=== PATIENT | male | born 1945 | race Caucasian/White ===

== ENCOUNTER → 2020-07-27 14:34 | Outpatient (BNVA) | payer MEDICARE, BC, SELFPAY | PROVIDERS: Family Provider Family Medicine; PCP Nurse Practitioner Family; Visit Provider Nurse Practitioner Family | DX: Z20.828 Contact with and (suspected) exposure to other viral communicable diseases (principal) | CPT/HCPCS: 87635 ==

== ENCOUNTER → 2021-01-26 10:51 | Outpatient (BNVA) | payer MEDICARE, BC, SELFPAY | PROVIDERS: Family Provider Family Medicine; PCP Family Medicine; Referring Provider Family Medicine; Visit Provider Specialist | DX: M25.551 Pain in right hip (principal); M25.552 Pain in left hip; M16.0 Bilateral primary osteoarthritis of hip | CPT/HCPCS: 73521 ==

== ENCOUNTER 2021-02-02 06:00 | Outpatient (RCR) | payer MEDICARE, BC, SELFPAY | END 2021-02-02 23:59 | disposition home or self-care (01) | LOC: APT 06:00 | PROVIDERS: Family Provider Family Medicine; PCP Family Medicine; Referring Provider Specialist; Visit Provider Specialist | DX: M16.11 Unilateral primary osteoarthritis, right hip (principal) | CPT/HCPCS: 97110; 97161 ==

== ENCOUNTER 2021-02-03 06:00 | Outpatient (RCR) | payer MEDICARE, BC, SELFPAY | END 2021-03-04 23:59 | disposition home or self-care (01) | LOC: APT 06:00 | PROVIDERS: PCP Family Medicine; Referring Provider Specialist; Visit Provider Specialist | DX: Z96.643 Presence of artificial hip joint, bilateral (principal) | CPT/HCPCS: 97110 ==

== ENCOUNTER → 2022-04-20 13:49 | Outpatient (BNVA) | payer MEDICARE, BC, SELFPAY | PROVIDERS: PCP Family Medicine; Visit Provider Specialist | DX: M70.62 Trochanteric bursitis, left hip (principal) | CPT/HCPCS: 20610; 99213; J1100; J2795; J3301 ==

== ENCOUNTER → 2022-07-27 11:16 | Outpatient (BNVA) | payer MEDICARE, BC, SELFPAY | PROVIDERS: PCP Family Medicine; Visit Provider Specialist | DX: M54.9 Dorsalgia, unspecified (principal); M51.37 Other intervertebral disc degeneration, lumbosacral region; M48.062 Spinal stenosis, lumbar region with neurogenic claudication | CPT/HCPCS: 72110; 99203 ==

== ENCOUNTER 2022-10-06 14:38 | Outpatient (CLI) | payer MEDICARE, BC, SELFPAY ==
--- NOTE | 2022-10-06 15:15 | MR_ITS ---
WS: [id number] MRI LUMBAR SPINE NONCONTRAST HISTORY: M48.062 - Spinal stenosis, lumbar region with neurogenic ... COMPARISON: None available. TECHNIQUE: Sagittal and axial multisequence imaging is submitted. Straightening of the normal cervical lordosis. Mild LEFT curvature lumbar spine. Disc spaces are narrowed and desiccated throughout. Osteophytic ridging and facet arthritis at multip le levels. There is a small amount of marrow edema in the L1 and L2 vertebral bodies. Conus terminates normally at L1-2 disc level. L1-L2: Diffuse osteophytic ridging and annular disc bulging. Ligamentum flavum and facet arthritis. M ild central and bilateral subarticular recess and foraminal stenosis. L2-L3: Diffuse osteophytic ridging, annular disc bulging, severe ligamentum flavum and facet arthriti s. Deformity of the thecal sac resulting in moderate central, bilateral subarticular recess and mild foraminal stenosis. Mild encroachment upon the traversing L3 nerve roots. L3-L4: Diffuse osteophytic ridging and annular disc bulging. Mild bilateral foraminal, central and muller barticular stenosis. L4-L5: Diffuse annular disc bulging and marked osteophytic ridging. Marked ligamentum flavum and face t arthritis. LEFT laminectomy defect. Moderate bilateral subarticular recess encroachment. Minimal fo raminal narrowing. L5-S1: Osteophytic ridging. Mild foraminal narrowing. Mild subarticular recess stenosis, LEFT greater than RIGHT. Partially visualized bilateral cystic masses associated with each kidney. MR/MR lumbar spine wo con* [id number] IMPRESSION: 1. Moderate to severe lumbar spondylosis. 2. Moderate central, bilateral subarticular recess stenosis at L2-3 with encro achment upon the traversing L3 nerve roots. Mild foraminal stenosis. 3. Mild central, bilateral subarticular recess and foraminal stenosis at L1-2 and L3-4. 4. Moderate bilateral subarticular recess encroachment at L4-5 and mild forami nal stenosis. 5. Prior LEFT hemilaminectomy defect at L4-5.
== END 2022-10-06 14:39 | disposition home or self-care (01) ==
LOC: RAD 14:38
PROVIDERS: PCP Family Medicine; Visit Provider Physician Assistant
DX: M48.062 Spinal stenosis, lumbar region with neurogenic claudication (principal); M51.37 Other intervertebral disc degeneration, lumbosacral region; M47.816 Spondylosis without myelopathy or radiculopathy, lumbar region; M96.1 Postlaminectomy syndrome, not elsewhere classified
CPT/HCPCS: 72148

== ENCOUNTER → 2022-11-02 10:48 | Outpatient (BNVA) | payer MEDICARE, BC, SELFPAY | PROVIDERS: PCP Family Medicine; Visit Provider Physician Assistant | DX: M48.062 Spinal stenosis, lumbar region with neurogenic claudication (principal); M47.816 Spondylosis without myelopathy or radiculopathy, lumbar region | CPT/HCPCS: 99213 ==

== ENCOUNTER → 2022-11-28 11:29 | Outpatient (BNVA) | payer MEDICARE, BC, SELFPAY | PROVIDERS: PCP Family Medicine; Visit Provider Anesthesiology Pain Medicine | DX: M48.062 Spinal stenosis, lumbar region with neurogenic claudication (principal); M51.37 Other intervertebral disc degeneration, lumbosacral region; M46.1 Sacroiliitis, not elsewhere classified; M16.0 Bilateral primary osteoarthritis of hip; M47.816 Spondylosis without myelopathy or radiculopathy, lumbar region; M70.62 Trochanteric bursitis, left hip; M70.61 Trochanteric bursitis, right hip; Z87.891 Personal history of nicotine dependence; R10.2 Pelvic and perineal pain; Y93.9 Activity, unspecified | CPT/HCPCS: 72190; 99204 ==

== ENCOUNTER → 2022-12-20 13:02 | Outpatient (BNVA) | payer MEDICARE, SELFPAY | PROVIDERS: PCP Family Medicine; Visit Provider Anesthesiology Pain Medicine | DX: M51.16 Intervertebral disc disorders with radiculopathy, lumbar region (principal); M48.062 Spinal stenosis, lumbar region with neurogenic claudication | CPT/HCPCS: 62323; J1040; J3490 ==

== ENCOUNTER → 2023-01-04 11:16 | Outpatient (BNVA) | payer MEDICARE, SELFPAY | PROVIDERS: PCP Family Medicine; Visit Provider Anesthesiology Pain Medicine | DX: M48.062 Spinal stenosis, lumbar region with neurogenic claudication (principal); M47.816 Spondylosis without myelopathy or radiculopathy, lumbar region; M51.37 Other intervertebral disc degeneration, lumbosacral region; M70.62 Trochanteric bursitis, left hip; M70.61 Trochanteric bursitis, right hip; Y93.9 Activity, unspecified | CPT/HCPCS: 99214 ==

== ENCOUNTER → 2023-02-14 11:05 | Outpatient (BNVA) | payer MEDICARE, SELFPAY | PROVIDERS: PCP Family Medicine; Visit Provider Anesthesiology Pain Medicine | DX: M48.062 Spinal stenosis, lumbar region with neurogenic claudication (principal); M47.816 Spondylosis without myelopathy or radiculopathy, lumbar region; M51.37 Other intervertebral disc degeneration, lumbosacral region; M70.62 Trochanteric bursitis, left hip; M70.61 Trochanteric bursitis, right hip; Y93.9 Activity, unspecified | CPT/HCPCS: 99213 ==

== ENCOUNTER → 2023-02-20 13:49 | Outpatient (BNVA) | payer MEDICARE, SELFPAY | PROVIDERS: PCP Family Medicine; Visit Provider Dermatology | DX: C44.329 Squamous cell carcinoma of skin of other parts of face (principal); L57.0 Actinic keratosis; L82.1 Other seborrheic keratosis; L57.8 Other skin changes due to chronic exposure to nonionizing radiation; L81.4 Other melanin hyperpigmentation | CPT/HCPCS: 11102; 99203 ==

== ENCOUNTER → 2023-03-13 09:45 | Outpatient (BNVA) | payer MEDICARE, SELFPAY | PROVIDERS: PCP Family Medicine; Visit Provider Dermatology | DX: C44.329 Squamous cell carcinoma of skin of other parts of face (principal) | CPT/HCPCS: 14040; 17311; 17312 ==

== ENCOUNTER → 2023-05-22 13:07 | Outpatient (BNVA) | payer MEDICARE, SELFPAY | PROVIDERS: PCP Family Medicine; Visit Provider Dermatology | DX: L57.0 Actinic keratosis (principal); L82.1 Other seborrheic keratosis; L57.8 Other skin changes due to chronic exposure to nonionizing radiation; L81.4 Other melanin hyperpigmentation; Z85.828 Personal history of other malignant neoplasm of skin; Z87.891 Personal history of nicotine dependence | CPT/HCPCS: 17000; 17003; 99213 ==

== ENCOUNTER → 2025-05-18 13:06 | Outpatient (BNVA) | payer MEDICARE, SELFPAY | PROVIDERS: PCP Family Medicine; Visit Provider Family Medicine | DX: I10 Essential (primary) hypertension (principal); E03.9 Hypothyroidism, unspecified; N40.0 Benign prostatic hyperplasia without lower urinary tract symptoms; A93.8 Other specified arthropod-borne viral fevers; G47.00 Insomnia, unspecified; R53.83 Other fatigue | CPT/HCPCS: 80053; 80061; 82306; 82607; 84443; 85025 ==